=== PATIENT | female | born 1975 | race Caucasian/White ===

== ENCOUNTER 2020-07-23 15:30 | Outpatient (RCR) | payer MEDICARE, SELFPAY ==
--- NOTE | 2020-05-07 13:01 | HP.PTEVAL ---
Patient's Visit Information AUBREE PEDERSEN is a 45 year old F referred to Physical Therapy by Dr. Oliva Glynn DPM with a diagnosis of R ankle pain. Date of Evaluation: 05/07/20 Physical Therapist: Clay Haynes, PT, ATC - Visit Plan Frequency: 1x/Week Duration: 1 Week Plan: Follow up in one month to assess benefit of R ankle estim and stretching. - Subjective Pt reports her R ankle became sore 2 months ago. Pt reports her pain had an insidious onset in nature. Pt had xrays taken which revealed no fractures. Pt was placed in a boot for 3 weeks and the pain never improved. Pt notes her doctor believes she has a nerve pinched in her R ankle which is what is causing the pain. Pt reports her pain increases with ambulation, stair negotiation, and even when she is just sitting around watching TV. Pt reports she has tingling in her R ankle and on the top of her R foot. Pt notes sleep difficulty in her R foot secondary to pain. 8/10 at rest, 9/10 at worst. - Pain R ankle Pain Intensity (Out of 10): 8 Pain Intensity Range: 9 - Objective Neuro: B LE sensation is WNL to lilght touch. B achilles reflex= 1/3. Palpation: No swelling noted. Pt is very tender along the lateral malleolus and along the distribution of the peroneal muscle tendons. Girth: B LE's 51 cm. ROM: L ankle DF= 0, PF= 50; R ankle DF= 0, PF= 25. MMT: R ankle DF is too painful to test. All other B LEMMT 5/5 throughout - Goals Goal 1:: I with HEP Goal Time Frame: 1 Week - Rehabilitation Potential Physical Therapy Diagnosis: Pt has R ankle pain, weakness, and limited ROM secondary to possible R ankle nerve entrapment Rehabilitation Potential: Good - Anticipated Interventions Patient/Client Instruction: Educate patient on: Condition, Plan of Care For the Purpose of:: To improve self management Therapeutic Exercise to Include: Flexibilty training, Passive ROM, Active ROM For the Purpose of:: To increase ROM, To improve muscle performance and motor function Thank you for the opportunity to evaluate your patient. For Medicare and Medicare HMO plans, please review the plan of care and approve it. It will need to be FAXED BACK to us at [phone] for Medicare purposes. For Medicare only, by signing this I certify the plan of care. Please let me know if there are questions or concerns regarding this plan of care. Physician Signature: Date:
--- NOTE | 2020-09-23 14:34 | HP.PT.NRP ---
AUBREE PEDERSEN was seen in my office for initial evaluation on 05/07/20. The following Plan of Care was established for this patient: Initial Frequency: 1x/Week Initial Duration: 1 Week Patient/Client Instruction: Educate patient on: Condition, Plan of Care For the Purpose of:: To improve self management Therapeutic Exercise to Include: Flexibilty training, Passive ROM, Active ROM For the Purpose of:: To increase ROM, To improve muscle performance and motor function This patient was last seen in our office . Pertinent comments regarding their Physical therapy will appear below: Pt was treated for 5 PT visits for R ankle pain through the date of 07/16/21. Pt has not returned through todays date and is discontinued at this time. At this point I will be discontinuing this patient from physical therapy. I would be happy to see this patient again in the future if found appropriate by the physician. Thank you! Clay Haynes, PT, ATC
== END 2020-07-23 19:00 | disposition home or self-care (01) ==
LOC: PT 15:30
PROVIDERS: Visit Provider Podiatrist Foot & Ankle Surgery
DX: M19.072 Primary osteoarthritis, left ankle and foot (principal); M79.2 Neuralgia and neuritis, unspecified
CPT/HCPCS: 97014; 97035; 97161; G0283

== ENCOUNTER → 2022-03-29 | Outpatient (CLI) | payer MEDICARE, SELFPAY ==
[2022-03-29 17:51] LABS: AST(SGOT) 16 U/L (15-37); Alanine Aminotransfer ALT/SGPT 23 U/L (13-56); Albumin, Serum 3.7 g/dL (3.2-5.0); Alkaline Phosphatase 62 U/L (45-117); Anion Gap 2 (5-15); BUN 13 mg/dL (7-18); BUN/Creat Ratio 18.2 RATIO (10-20); Calcium,Total 8.9 mg/dL (8.5-10.1); Chloride 110 mmol/L (98-107); Creatinine, Serum 0.72 mg/dL (0.55-1.02); EST Glomerular Filtration Rate 93 mL/min (>60); Est Glom Filt Rate - Afr Amer 113 mL/min (>60); Globulin 3.8 g/dL (2.2-4.2); Glucose 99 mg/dL (74-106); Potassium 3.8 mmol/L (3.5-5.1); Protein, Total 7.5 g/dL (6.4-8.2); Sodium Level 139 mmol/L (136-145)
== END | disposition home or self-care (01) ==
LOC: MTLAB 15:54
PROVIDERS: PCP Family Medicine; Referring Provider Internal Medicine Rheumatology; Visit Provider Internal Medicine Rheumatology
DX: M05.70 Rheumatoid arthritis with rheumatoid factor of unspecified site without organ or systems involvement (principal); F41.9 Anxiety disorder, unspecified; F32.89 Other specified depressive episodes; J30.9 Allergic rhinitis, unspecified; I10 Essential (primary) hypertension; Z79.899 Other long term (current) drug therapy
CPT/HCPCS: 36415; 80053

== ENCOUNTER → 2024-11-13 | Outpatient (CLI) | payer MEDICARE, SELFPAY ==
[2024-11-13 11:43] LABS: EXAGEN MAILED SPECIMEN
[2024-11-13 16:10] LABS: Absolute Neutrophil Count 1.5 X10^3/uL (2.0-7.7); Basophil# 0.02 X10^3/uL; Basophil% 0.7 % (0-1); Eosinophil# 0.06 X10^3/uL; Hemoglobin 12.9 g/dL (12.0-15.0); Lymphocyte % 33.6 % (19-41); Mean Corp Hgb Conc 33.1 g/dL (32-36); Mean Corpuscular Hgb 33.7 pg (27.0-32.0); Mean Corpuscular Volume 101.8 fL (81-99); Mean Platelet Vol. 9.8 fl (6.2-12.0); Monocyte# 0.35 X10^3/uL; Monocyte% 11.7 % (0-10); NRBC Flagged by Analyzer 0 % (0-5); Neutrophil # 1.54 X10^3/uL (2.7-7.7); Neutrophil % 51.7 % (47-70); Platelet Count 330 K/mm3 (150-450); RBC Distribution Width CV 13.2 % (11.6-14.6); Red Blood Count 3.83 M/mm3 (4.2-5.4)
[2024-11-13 17:23] LABS: ALB/GLOB Ratio 1.4 RATIO (0.9-2.4); AST(SGOT) 20 U/L (<=31); Alanine Aminotransfer ALT/SGPT 23 U/L (<=34); Albumin, Serum 4.2 g/dL (3.5-5.0); Alkaline Phosphatase 54 U/L (35-104); Anion Gap 8 (5-15); BUN 11 mg/dL (4-19); BUN/Creat Ratio 15.6 RATIO (10-20); Calcium,Total 9.2 mg/dL (7.6-11.0); Carbon Dioxide 21.9 mmol/L (21.0-32.0); Chloride 107 mmol/L (98-108); Creatinine, Serum 0.68 mg/dL (0.70-1.20); EST Glomerular Filtration Rate 107 (>60); Globulin 2.9 g/dL (2.2-4.2); Glucose 102 mg/dL (70-99); Potassium 4.1 mmol/L (3.3-5.1); Protein, Total 7.1 g/dL (5.9-8.4); Sodium Level 138 mmol/L (133-145)
== END | disposition home or self-care (01) ==
LOC: MTLAB 10:29
PROVIDERS: PCP Family Medicine; Referring Provider Internal Medicine Rheumatology; Visit Provider Internal Medicine Rheumatology
DX: M05.70 Rheumatoid arthritis with rheumatoid factor of unspecified site without organ or systems involvement (principal); R76.8 Other specified abnormal immunological findings in serum
CPT/HCPCS: 36415; 80053; 85025